=== PATIENT | female | born 1965 | race African-American/Black ===

== ENCOUNTER 2016-09-27 09:17 | Day surgery (SDC) | payer OTHER ==
[2016-09-22 11:23] LABS: HEMATOCRIT 29.5 % (36.0-48.0); HEMOGLOBIN 9.4 g/dL (12.0-16.0)
[2016-09-22 11:32] LABS: BUN (BLOOD UREA NITROGEN) 17 MG/DL (6-23); CALCIUM, SERUM 9.5 MG/DL (8.5-10.4); CHLORIDE, SERUM 111 MMOL/L (96-112); CO2 (CARBON DIOXIDE) 29 MMOL/L (24-34); CREATININE 1.25 MG/DL (0.55-1.02); GFR AFRICAN AMERICAN 58 ML/MIN (>=60); GFR NON AFRICAN AMERICAN 50 ML/MIN (>=60); GLUCOSE, SERUM 85 MG/DL (60-99); POTASSIUM, SERUM 4.4 MMOL/L (3.5-5.3); SODIUM, SERUM 146 MMOL/L (135-148)
--- NOTE | ~2016-09-27 | OP ---
Record Of Operation [facility] [address] [place]. [address] NAME: TIM WARE : 63 STATUS : [facility]#: [id number] AGE: 50 ADM/REG DATE : 09/27/16 MR#: [id number] REPORT SERV DATE: 09/27/16 DICTATED BY: JAIRO ROSALES III DATE: 09/27/16 REPORT STATUS : Draft TRANSCRIBED BY: MODL DATE: 09/27/16 DATE OF PROCEDURE: 09/27/2016 PREOPERATIVE DIAGNOSIS: Mixed incontinence. POSTOPERATIVE DIAGNOSES: 1. Normal-appearing bladder. 2. Enterocele and rectocele. PROCEDURE: Cystoscopy and exam under anesthesia. SURGEON: Jairo Rosales M.D. ANESTHESIA: General. SPECIMENS: Urine for culture. DRAINS: None. BLOOD LOSS: None. INDICATION: Ms. Ware is a 50-year-old black female, who has morbid obesity. She has a history of mixed incontinence as well as she has been treated for multiple urinary tract infections. Consent is obtained for cystoscopy. PROCEDURE IN DETAIL: After consent was obtained, the patient was identified. She was taken to the OR and put to sleep. She was positioned in the low lithotomy position and prepped and draped in usual fashion. The 22-Mal[place]ian cystoscope was made ready and inserted into the bladder. The bladder was inspected. The urothelium appeared normal. There were no tumors, stones, or foreign bodies. The specimens obtained from the bladder for urine culture. Half speculum was then used to examine the vagina. She was found to have a rectocele and enterocele as well. The bladder was then drained. The scope removed. The patient was awakened and taken to recovery in stable condition. PH/MODL Jairo Rosales III, M.D. / [id number] CC: Simin Seaman III, ANGELA C
[~2016-09-27 09:17] MED LIST: 8 HOUR650 MG PO; CLARIT10 PO; COREG12 PO; CYANO1000T PO; DITRO5 PO; FERROUS SULF325 M1 PO; FISH-EPA1000 MG PO; FLEX PO; FLOVENT110 INH; FOLIC PO; GLUCPH PO; HCTZ25B PO; KLOR-CON 1010 MEQ PO; LORT7 PO; MEVACOR40 MG PO; NEUR300 PO; NEUR800 PO; PAIN TOP; PEPTO-BISMOL262 MG PO; PERCOCET1 TA4 PO; PRILOSEC40 MG PO; PRIN5 PO; PROAIR HFA INH; PROTONIX PO; VITAMIN B-122500 MCG SL; VITAMIN D31000 UNIT PO; VITC500 PO; VITE PO; ZANTAC 150 PO; ZANTAC150 MG PO; ZOL50 PO; [UNRECOGNIZED DRUG - REMARK] TOP
== END 2016-09-27 15:47 | disposition home or self-care (01) ==
LOC: SDC 09:17
PROVIDERS: Urology
PROC: 0TJB8ZZ Inspection of Bladder, Via Natural or Artificial Opening Endoscopic (ICD-10-PCS; principal; 2016-09-27 10:30)
DX: N81.6 Rectocele (principal); R32 Unspecified urinary incontinence; K46.9 Unspecified abdominal hernia without obstruction or gangrene; E66.01 Morbid (severe) obesity due to excess calories; D64.9 Anemia, unspecified; F32.9 Major depressive disorder, single episode, unspecified; J45.909 Unspecified asthma, uncomplicated; K21.9 Gastro-esophageal reflux disease without esophagitis; Z90.710 Acquired absence of both cervix and uterus; Z87.442 Personal history of urinary calculi; Z91.040 Latex allergy status; Z90.49 Acquired absence of other specified parts of digestive tract; E11.9 Type 2 diabetes mellitus without complications
CPT/HCPCS: 80048; 82962; 85014; 85018; 87086; 93005; J0330; J2250; J2405